=== PATIENT | male | born 1995 | race Caucasian/White ===

== ENCOUNTER 2018-07-15 19:58 | Emergency (ER) | payer OTHER ==
[2018-07-15] MEDS: NORCO 5/325MG TABLET (BULK FOR ED) PO (20:39)
== END 2018-07-15 20:45 | disposition home or self-care (01) ==
LOC: M ED 19:58
DX: K08.89 Other specified disorders of teeth and supporting structures (principal)
CPT/HCPCS: 99282

== ENCOUNTER 2020-11-04 07:59 | Emergency (ER) | payer OTHER ==
[~2020-11-04] VITALS: Ht 177.8 cm; Wt 101.0 kg
[2020-11-04] MEDS ORDERED: NS 1,000 ML IV ONE (08:30)
[2020-11-04 08:38] LABS: BASO % 0.6 % (0.0-1.0); EOS # 0.1 10^3/uL (0.0-0.5); EOS % 0.8 % (0.0-3.0); HEMATOCRIT 48.3 % (42.0-52.0); HEMOGLOBIN 15.5 g/dl (13.5-17.5); LYMPH # 3.6 10^3/uL (1.5-5.0); LYMPH % 58.3 % (24.0-44.0); MEAN CORPUSCULAR HEMOGLOBIN 26.8 pg (27.0-33.0); MEAN CORPUSCULAR HGB CONC 32.1 g/dl (32.0-36.5); MEAN CORPUSCULAR VOLUME 83.6 fl (80.0-96.0); MONO # 0.4 10^3/uL (0.0-0.8); MONO % 7.1 % (0.0-5.0); NEUTROPHILS % 32.9 % (36.0-66.0); PLATELET COUNT, AUTOMATED 256 10^3/uL (150-450); RED BLOOD COUNT 5.78 10^6/uL (4.30-6.10); WHITE BLOOD COUNT 6.2 10^3/uL (4.0-10.0)
[2020-11-04 09:09] LABS: ALBUMIN 4.3 GM/DL (3.2-5.2); BILIRUBIN,DIRECT 0.2 MG/DL (0.0-0.2); BILIRUBIN,TOTAL 0.7 MG/DL (0.2-1.0); TOTAL PROTEIN 7.8 GM/DL (6.4-8.2)
--- NOTE | 2020-11-04 09:32 | REP ---
INDICATION: R flank pain, r/o stone. COMPARISON: None TECHNIQUE: Without intravenous or oral bowel preparatory contrast. FINDINGS: The lung bases are clear. Limited evaluation of the solid intra-organs and gallbladder show no abnormalities. Limited evaluation of the abdominal aorta and para-aortic regions show no abnormalities. Limited evaluation of the bowel loops and the mesenteries show no abnormalities. There is no free fluid or free air. Limited evaluation of the pancreas and adrenal glands show no abnormalities. There is a 2 mm size calcification in the interpolar region of the left kidney which is not causing obstructive phenomena. There are no right-sided nephroliths. There are no ureteroliths. There is no hydronephrosis or hydroureter. Within the urinary bladder along the posterior wall there is a 3 mm size calcification. The osseous structures are within normal limits. IMPRESSION: 1. Tiny nonobstructing left nephrolith as described above. 2. Tiny calcification within the urinary bladder as described above consistent with a recently passed nephrolith. <Electronically signed by Cb Zamora > 11/04/20 0914
[2020-11-04 10:28] VITALS: BP 159/98
[2020-11-04] MEDS ORDERED: FLOM0.4C39 PO (10:33)
== END 2020-11-04 10:57 | disposition home or self-care (01) ==
LOC: M ED 07:59
DX: N20.1 Calculus of ureter (principal)